=== PATIENT | male | born 1950 | race Hispanic/Latino ===

== ENCOUNTER 2018-02-17 06:54 | Day surgery (SDC) | payer MEDICARE, OTHER ==
[2018-02-17] MEDS ORDERED: Propofol 10 mg/ml Inj (20 ML) ONE (08:10)
[2018-02-17] MEDS ORDERED: Midazolam 2 MG/2 ML VIAL ONE (08:10)
[2018-02-17] MEDS ORDERED: Sodium Chloride 0.9% 1,000 ML IV SCH (09:30)
[2018-02-17 09:51] VITALS: PULSE 65; O2SAT 97
[2018-02-17 10:22] VITALS: BP 130/78; RESP 16; TEMP 98
== END 2018-02-17 10:43 | disposition home or self-care (01) ==
LOC: ENDO 06:54
PROVIDERS: ATTEND Specialist
DX: Z12.11 Encounter for screening for malignant neoplasm of colon (principal); D12.3 Benign neoplasm of transverse colon; K57.30 Diverticulosis of large intestine without perforation or abscess without bleeding; K63.89 Other specified diseases of intestine; K64.9 Unspecified hemorrhoids; Z85.038 Personal history of other malignant neoplasm of large intestine
CPT/HCPCS: 45380; 45385; 88305; J2001; J2250; J2704; J7030